=== PATIENT | female | born 1980 | race American Indian/Alaskan Native ===

== ENCOUNTER 2017-12-06 07:13 | Inpatient (IN) | payer OTHER ==
[2017-12-05 09:41] VITALS: BMI 32.4
--- NOTE | 2017-12-06 09:14 | CP.PCM.HP ---
History of Present Illness - History of Present Illness History of Present Illness: fibroid uterus,anemia Present on Admission - Present on Admission Any Indicators Present on Admission: No - Notes: Notes:: wnl Review of Systems - Hematologic/Lymphatic Additional comments: wnl Past Patient History - Past Medical History & Family History Past Medical History?: Yes - Past Social History Smoking Status: Never Smoked - CARDIAC Hx Cardiac Disorders: No - PULMONARY Hx Respiratory Disorders: No - NEUROLOGICAL Hx Neurological Disorder: No - HEENT Hx HEENT Problems: No - RENAL Hx Chronic Kidney Disease: No - ENDOCRINE/METABOLIC Hx Endocrine Disorders: No - HEMATOLOGICAL/ONCOLOGICAL Hx Blood Disorders: Yes Hx Anemia: Yes - INTEGUMENTARY Hx Dermatological Problems: No - MUSCULOSKELETAL/RHEUMATOLOGICAL Hx Musculoskeletal Disorders: No - GASTROINTESTINAL Hx Gastrointestinal Disorders: No - GENITOURINARY/GYNECOLOGICAL Hx Genitourinary Disorders: No - PSYCHIATRIC Hx Emotional Abuse: No Hx Physical Abuse: No - SURGICAL HISTORY Hx Surgeries: Yes Hx Section: Yes (x3) Hx Tubal Ligation: Yes Other/Comment: broken nose surgery - ANESTHESIA Hx Anesthesia: Yes Hx Anesthesia Reactions: No Hx Malignant Hyperthermia: No Has any member of the family had a problem w/ anesthesia?: No Meds Allergies/Adverse Reactions: Allergies Allergy/AdvReac Type Severity Reaction Status Date / Time No Known Allergies Allergy Verified 12/06/17 07:37 Results - Vital Signs Recent Vital Signs: Last Vital Signs Temp 98.3 F 12/06/17 08:01 Pulse 68 12/06/17 08:06 Resp 18 12/06/17 08:01 BP 113/69 12/06/17 08:01 Pulse Ox 97 12/06/17 08:01
--- NOTE | 2017-12-06 09:18 | CP.PCM.HP ---
Present on Admission - Present on Admission Any Indicators Present on Admission: No Past Patient History - Past Medical History & Family History Past Medical History?: Yes - Past Social History Smoking Status: Never Smoked - CARDIAC Hx Cardiac Disorders: No - PULMONARY Hx Respiratory Disorders: No - NEUROLOGICAL Hx Neurological Disorder: No - HEENT Hx HEENT Problems: No - RENAL Hx Chronic Kidney Disease: No - ENDOCRINE/METABOLIC Hx Endocrine Disorders: No - HEMATOLOGICAL/ONCOLOGICAL Hx Blood Disorders: Yes Hx Anemia: Yes - INTEGUMENTARY Hx Dermatological Problems: No - MUSCULOSKELETAL/RHEUMATOLOGICAL Hx Musculoskeletal Disorders: No - GASTROINTESTINAL Hx Gastrointestinal Disorders: No - GENITOURINARY/GYNECOLOGICAL Hx Genitourinary Disorders: No - PSYCHIATRIC Hx Emotional Abuse: No Hx Physical Abuse: No - SURGICAL HISTORY Hx Surgeries: Yes Hx Section: Yes (x3) Hx Tubal Ligation: Yes Other/Comment: broken nose surgery - ANESTHESIA Hx Anesthesia: Yes Hx Anesthesia Reactions: No Hx Malignant Hyperthermia: No Has any member of the family had a problem w/ anesthesia?: No Meds Allergies/Adverse Reactions: Allergies Allergy/AdvReac Type Severity Reaction Status Date / Time No Known Allergies Allergy Verified 12/06/17 07:37 Results - Vital Signs Recent Vital Signs: Last Vital Signs Temp 98.3 F 12/06/17 08:01 Pulse 68 12/06/17 08:06 Resp 18 12/06/17 08:01 BP 113/69 12/06/17 08:01 Pulse Ox 97 12/06/17 08:01 - Impressions Impression: wnl Assessment & Plan - Assessment and Plan (Free Text) Assessment: admit for gisell/bso Plan: admit for gisell/bso
[2017-12-06] MEDS ORDERED: Neostigmine Methylsulfate 3mg/3ml Syringe IV ONE (09:21)
[2017-12-06] MEDS ORDERED: Succinylcholine 200 mg/10 ml Inj IV ONE (09:22)
[2017-12-06] MEDS ORDERED: Lactated Ringer's 1,000 ML IV ONE ×4 (10:05→13:09)
[2017-12-06] MEDS ORDERED: cefOXitin IV 1 gm in Dextrose 1 GM/50 ML BAG IVPB ONE (10:05)
[2017-12-06] MEDS ORDERED: Sodium Chloride 0.9% 1,000 ML IV ONE (11:15)
[2017-12-06] MEDS ORDERED: Naloxone 0.4 mg/ml Inj (Adult) IVP PRN (13:14)
[2017-12-06] MEDS: HYDROmorphone 0.5 mg/0.5 ml ISec IVP PRN ×2 (13:25→13:40)
[2017-12-06] MEDS ORDERED: HYDROmorphone 0.5 mg/0.5 ml ISec IVP ONE ×2 (14:10→14:25)
[2017-12-06] MEDS ORDERED: HYDROmorphone 0.5 mg/0.5 ml ISec IVP PRN ×3 (14:53→23:45)
[2017-12-06] MEDS: cefOXitin Sodium 1 GM in Sodium Chloride 0.9% 100 ML IVPB SCH (17:54)
[2017-12-06] MEDS: Lactated Ringer's 1,000 ML IV SCH (22:46)
[2017-12-07] MEDS: cefOXitin Sodium 1 GM in Sodium Chloride 0.9% 100 ML IVPB SCH (02:12)
[2017-12-07] MEDS: Lactated Ringer's 1,000 ML IV SCH (05:54)
[2017-12-07 07:07] LABS: HEMOGLOBIN 10.9 g/dL (12.0-16.0); MEAN CELL VOLUME 82.6 fl (81.0-99.0); MEAN CORPUSCULAR HEMOGLOBIN 26.4 pg (27.0-31.0); RBC 4.14 Mil/uL (3.80-5.20); RED CELL DISTRIBUTION WIDTH 22.4 % (11.5-14.5); WHITE BLOOD COUNT 7.3 K/uL (4.8-10.8)
--- NOTE | 2017-12-07 14:00 | CP.PCM.PN ---
Subjective - Date & Time of Evaluation Date of Evaluation: 12/07/17 Time of Evaluation: 02:00 - Subjective Subjective: feels better today no complaints Objective - Vital Signs/Intake and Output Vital Signs (last 24 hours): Temp Pulse Resp BP Pulse Ox 99.2 F 80 18 113/74 98 12/07/17 05:00 12/07/17 05:00 12/07/17 05:00 12/07/17 05:00 12/07/17 05:00 - Medications Medications: Current Medications Hydromorphone HCl (Dilaudid) 1 mg IVP Q4 PRN PRN Reason: Pain, severe (8-10) Last Admin: 12/06/17 17:55 Dose: 1 mg Hydromorphone HCl (Dilaudid) 0.5 mg IVP Q4 PRN PRN Reason: Pain, moderate (4-7) Last Admin: 12/07/17 05:51 Dose: 0.5 mg Lactated Ringer's (Lactated Ringer's) 1,000 mls @ 125 mls/hr IV .Q8H VIRA Last Admin: 12/07/17 05:54 Dose: 125 mls/hr Ondansetron HCl (Zofran Inj) 4 mg IVP Q6 PRN PRN Reason: Nausea/Vomiting - Labs Labs: 12/07/17 05:30 - GI/Abdominal Exam Additional comments: v.s stable afebrile dressing is clean abdomen soft Assessment and Plan - Assessment and Plan (Free Text) Assessment: stable pod 1 s/p gisell and right cystectomy lysis of massive adhesion Plan: continue present care oob with assistance baldo chavez encourage ambulation regular diet
[2017-12-07] MEDS ORDERED: Oxycodone/Acetaminophen 5/325 mg Tab PO ONE (14:07)
[2017-12-07] MEDS ORDERED: Oxycodone/Acetaminophen 5/325 mg Tab PO PRN (15:46)
[2017-12-07] MEDS: Oxycodone/Acetaminophen 5/325 mg Tab PO PRN (19:54)
[2017-12-08] MEDS: Oxycodone/Acetaminophen 5/325 mg Tab PO PRN ×4 (02:08→22:39)
--- NOTE | 2017-12-08 13:22 | CP.PCM.PN ---
Subjective - Date & Time of Evaluation Date of Evaluation: 12/08/17 Time of Evaluation: 01:20 - Subjective Subjective: no complaints Objective - Vital Signs/Intake and Output Vital Signs (last 24 hours): Temp Pulse Resp BP Pulse Ox 97.7 F 77 20 100/68 99 12/08/17 08:33 12/08/17 08:33 12/08/17 08:33 12/08/17 08:33 12/08/17 08:33 - Medications Medications: Current Medications Hydromorphone HCl (Dilaudid) 1 mg IVP Q4 PRN PRN Reason: Pain, severe (8-10) Last Admin: 12/06/17 17:55 Dose: 1 mg Hydromorphone HCl (Dilaudid) 0.5 mg IVP Q4 PRN PRN Reason: Pain, moderate (4-7) Last Admin: 12/07/17 05:51 Dose: 0.5 mg Ondansetron HCl (Zofran Inj) 4 mg IVP Q6 PRN PRN Reason: Nausea/Vomiting Oxycodone/Acetaminophen (Percocet 5/325 Mg Tab) 1 tab PO Q4 PRN PRN Reason: Pain, moderate (4-7) Stop: 12/10/17 15:47 Oxycodone/Acetaminophen (Percocet 5/325 Mg Tab) 2 tab PO Q4 PRN PRN Reason: Pain, severe (8-10) Stop: 12/10/17 18:29 Last Admin: 12/08/17 10:05 Dose: 2 tab - Labs Labs: 12/07/17 05:30 - Eye Exam Additional comments: v.s. stable afebrile no bm today Assessment and Plan - Assessment and Plan (Free Text) Assessment: stable pod2 s/p gisell right ovarian cystectomy and lysis of massive adhesions Plan: continue present magement possible discharge in am if positive bm
[2017-12-08 16:32] VITALS: O2SAT 99
--- NOTE | 2017-12-09 01:59 | OP ---
PROCEDURE DATE: 12/06/2017 PREOPERATIVE DIAGNOSES: Fibroid uterus, anemia. POSTOPERATIVE DIAGNOSES: Massive pelvic adhesions and right ovarian cyst. FINDINGS: Uterus adherent to the omentum with thick adhesions. PROCEDURE: Laparotomy with total abdominal hysterectomy, right ovarian cystectomy, bilateral salpingectomy, and lysis of adhesions. SURGEON: Morteza Simmons MD. SCHOOL TRANSPORTATION DIRECTOR: Margarito Warner MD. ANESTHESIA ADMINISTERED BY: Jf Barriga MD TYPE OF ANESTHESIA: General. DESCRIPTION OF PROCEDURE: With the patient in the supine position under general anesthesia, patient was prepped and draped in the usual sterile manner. Dr. Warner was assisting each preparation of the surgery. He is doing his part. I am doing my part. A Pfannenstiel incision was made and taken down to the fascia in layers. Fascia was from the muscles by sharp dissection, after which the peritoneum was opened vertically and there was massive amount of adhesions of the uterus to the omentum. Very thick adhesions in the lower segment of the uterus. There was much time spent in dissecting and trying to separate the adhesions to begin the surgery. After this was done, the round ligaments were ligated bilaterally; clamped, cut, and ligated. Following this, the posterior broad ligament was entered via neurovascular space and the infundibulopelvic ligament was clamped, cut, and ligated, leaving both ovaries in place, which was done bilaterally, Dr. Warner assisting in each step of the way. Following this, the uterine vessels were skeletonized, doubly clamped, cut, and ligated bilaterally, maintaining hemostasis. After this was done, several bites were taken down at the side of the cervix until the vagina was approximated. The vagina was entered posteriorly and then special scissors were used to remove the uterus and cervix. Once this was done, the angled sutures were placed under the vagina. Vagina was closed with interrupted [id number] maintaining hemostasis. After this was done, the pelvic cavity was irrigated until clean, maintaining hemostasis. The cyst from the right ovary was then removed and also bilateral salpingectomy was performed. After this was done, hemostasis was maintained, pelvic cavity was irrigated until clean. Dr. Warner doing his side, I am doing my side. After this was done, the peritoneum was clamped with Mellissa clamps and then closed with 1 Vicryl maintaining hemostasis. The muscles were approximated using 1 Vicryl. Then the fascia was closed with PDS, starting at each end and finishing in the middle. Dr. Warner doing his side, I am doing my side. After this was done, the subcutaneous layer was approximated with 2-0 plain and the skin was closed with zoila. Estimated blood loss was about 500 mL. Patient tolerated the procedure well and was in satisfactory condition on the way to recovery room. Morteza Simmons MD
[2017-12-09] MEDS: Oxycodone/Acetaminophen 5/325 mg Tab PO PRN (03:59)
--- NOTE | 2017-12-09 08:44 | CP.PCM.DIS ---
Provider - Provider Date of Admission: 12/06/17 14:54 Attending physician: Morteza Simmons MD Primary care physician: Gayle Young MD Hospital Course - Lab Results Lab Results: Most Recent Lab Values WBC 7.3 K/uL (4.8-10.8) D 12/07/17 05:30 RBC 4.14 Mil/uL (3.80-5.20) 12/07/17 05:30 Hgb 10.9 g/dL (12.0-16.0) L D 12/07/17 05:30 Hct 34.2 % (34.0-47.0) 12/07/17 05:30 MCV 82.6 fl (81.0-99.0) 12/07/17 05:30 MCH 26.4 pg (27.0-31.0) L 12/07/17 05:30 MCHC 32.0 g/dL (33.0-37.0) L 12/07/17 05:30 RDW 22.4 % (11.5-14.5) H 12/07/17 05:30 Plt Count 192 K/uL (130-400) 12/07/17 05:30 - Hospital Course Hospital Course: uneventful doing well Discharge Exam - Skin Additional comments: stable pod3 s/p gisell right salpingectomy left salpingectomy,right ovarian cystec Discharge Plan - Follow Up Plan Condition: GOOD Disposition: HOME/ ROUTINE Referrals: Gayle Young MD [Primary Care Provider] -
--- NOTE | 2017-12-09 08:51 | CP.PCM.DIS ---
Provider - Provider Date of Admission: 12/06/17 14:54 Attending physician: Morteza Simmons MD Primary care physician: Gayle Young MD Time Spent in preparation of Discharge (in minutes): 30 Hospital Course - Lab Results Lab Results: Most Recent Lab Values WBC 7.3 K/uL (4.8-10.8) D 12/07/17 05:30 RBC 4.14 Mil/uL (3.80-5.20) 12/07/17 05:30 Hgb 10.9 g/dL (12.0-16.0) L D 12/07/17 05:30 Hct 34.2 % (34.0-47.0) 12/07/17 05:30 MCV 82.6 fl (81.0-99.0) 12/07/17 05:30 MCH 26.4 pg (27.0-31.0) L 12/07/17 05:30 MCHC 32.0 g/dL (33.0-37.0) L 12/07/17 05:30 RDW 22.4 % (11.5-14.5) H 12/07/17 05:30 Plt Count 192 K/uL (130-400) 12/07/17 05:30 Discharge Plan - Follow Up Plan Condition: GOOD Disposition: HOME/ ROUTINE Patient education suggested?: Yes Additional Instructions: rto 1week call office if any problem Referrals: Gayle Young MD [Primary Care Provider] -
[2017-12-09 09:03] VITALS: BP 102/73; PULSE 63; RESP 16; TEMP 97.4
== END 2017-12-09 12:20 | disposition home or self-care (01) | DRG 743 ==
LOC: H.OPSURG 07:13 → H.PEDS 14:54
PROVIDERS: ADMIT Specialist; ATTEND Specialist
PROC: 0DNW0ZZ Release Peritoneum, Open Approach (ICD-10-PCS; 2017-12-06)
PROC: 0UB00ZZ Excision of Right Ovary, Open Approach (ICD-10-PCS; 2017-12-06)
PROC: 0UT90ZZ Resection of Uterus, Open Approach (ICD-10-PCS; principal; 2017-12-06 09:15)
PROC: 0UT70ZZ Resection of Bilateral Fallopian Tubes, Open Approach (ICD-10-PCS; 2017-12-06 09:15)
DX: D25.9 Leiomyoma of uterus, unspecified (principal); D64.9 Anemia, unspecified; N73.6 Female pelvic peritoneal adhesions (postinfective); Z98.51 Tubal ligation status; N80.0 Endometriosis of uterus; N83.11 Corpus luteum cyst of right ovary